=== PATIENT | female | born 1990 | race Caucasian/White ===

== ENCOUNTER 2018-06-26 21:50 | Emergency (ER) | payer OTHER ==
[~2018-06-26] VITALS: Ht 157.5 cm; Wt 122.2 kg
[2018-06-26 21:51] VITALS: Ht 157.5 cm; Wt 122.2 kg
[2018-06-27] MEDS ORDERED: ACETAMINOPHEN 325 MG TAB PO ONE (03:00)
[2018-06-27] MEDS ORDERED: IBUP-1542 PO (04:13)
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
[2018-06-27 04:31] VITALS: BP 136/78; PULSE 77; RESP 19
== END 2018-06-27 04:32 | disposition home or self-care (01) ==
LOC: FTE 21:50
DX: S30.1XXA Contusion of abdominal wall, initial encounter (principal); S30.0XXA Contusion of lower back and pelvis, initial encounter; S10.93XA Contusion of unspecified part of neck, initial encounter; V49.50XA Passenger injured in collision with unspecified motor vehicles in traffic accident, initial encounter
CPT/HCPCS: 71045; 72040; 72100